=== PATIENT | female | born 1965 | race Caucasian/White ===

== ENCOUNTER 2020-03-28 12:27 | Outpatient (CLI) | payer OTHER, BC, SELFPAY ==
--- NOTE | ~2020-03-28 | MM_ITS ---
EXAMINATION: MM screening sabine BI w pepe HISTORY: Screening mammogram, family history of breast cancer in her mother. TECHNIQUE: Craniocaudal and mediolateral oblique 3-D tomosynthesis images were obtained and synthetic 2-D images were generated. CAD analysis was submitted and interpreted. COMPARISON: 03/27/2019, 03/21/2018, 03/18/2017 BREAST PARENCHYMAL COMPOSITION: The breasts are heterogeneously dense, which may obscure small masses . FINDINGS: There is no evidence of suspicious mass, calcification, or architectural distortion to sugg est malignancy in either breast. There has been no suspicious interval change. IMPRESSION: 1. No mammographic evidence of malignancy. 2. Recommend routine screening mammography in one year. BI-RADS Category 1: Negative Reviewed, dictated and finalized at location A.
== END 2020-03-28 12:28 | disposition home or self-care (01) ==
PROVIDERS: PCP Internal Medicine; Visit Provider Student in an Organized Health Care Education/Training Program
DX: Z12.31 Encounter for screening mammogram for malignant neoplasm of breast (principal)
CPT/HCPCS: 77063; 77067

== ENCOUNTER 2020-04-02 11:06 | Outpatient (CLI) | payer OTHER, BC, SELFPAY ==
--- NOTE | ~2020-04-02 | XR_ITS ---
XR hand RT min 3V DATE: 04/02/2020 11:22 INDICATION: Bilateral hand arthritis TECHNIQUE: 3 views COMPARISON: None FINDINGS: There is joint space narrowing and spurring at some of the interphalangeal joints, most pro nounced at the second distal interphalangeal joint. No fracture or dislocation, periosteal reaction or bone destruction. 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 IMPRESSION: Osteoarthritis involving primarily the distal interphalangeal joint s
--- NOTE | ~2020-04-02 | XR_ITS ---
XR hand LT min 3V DATE: 04/02/2020 11:22 INDICATION: Bilateral arthritis of the hands TECHNIQUE: 3 views COMPARISON: None FINDINGS: There is narrowing at multiple interphalangeal joints, with mild spurring at some, consiste nt with osteoarthritis. No fracture or dislocation, periosteal reaction or bone destruction, erosive change or chondrocalcino sis. IMPRESSION: Mild osteoarthritis involving the interphalangeal joints Reviewed, dictated and finalized at location A.
== END 2020-04-02 11:07 | disposition home or self-care (01) ==
PROVIDERS: PCP Internal Medicine; Visit Provider Internal Medicine
DX: M19.042 Primary osteoarthritis, left hand (principal); M19.041 Primary osteoarthritis, right hand
CPT/HCPCS: 73130

== ENCOUNTER 2021-04-01 12:25 | Outpatient (CLI) | payer OTHER, BC, SELFPAY ==
--- NOTE | ~2021-04-01 | MM_ITS ---
EXAMINATION: MM screening sabine BI w pepe HISTORY: Screening mammogram, family history of breast cancer in her mother. TECHNIQUE: Craniocaudal and mediolateral oblique 3-D tomosynthesis images were obtained and synthetic 2-D images were generated. CAD analysis was submitted and interpreted. COMPARISON: 03/28/2020 BREAST PARENCHYMAL COMPOSITION: The breasts are heterogeneously dense, which may obscure small masses . FINDINGS: There is no evidence of suspicious mass, calcification, or architectural distortion to sugg est malignancy in either breast. There has been no suspicious interval change. IMPRESSION: 1. No mammographic evidence of malignancy. 2. Recommend routine screening mammography in one year. BI-RADS Category 1: Negative Reviewed, dictated and finalized at location A.
== END 2021-04-01 12:26 | disposition home or self-care (01) ==
LOC: CHSIMG 12:28
PROVIDERS: PCP Internal Medicine; Visit Provider Obstetrics & Gynecology
DX: Z12.31 Encounter for screening mammogram for malignant neoplasm of breast (principal)
CPT/HCPCS: 77063; 77067

== ENCOUNTER 2022-04-02 07:51 | Outpatient (CLI) | payer OTHER, BC, SELFPAY ==
--- NOTE | ~2022-04-02 | MM_ITS ---
EXAMINATION: MM screening sabine BI w pepe HISTORY: Screening mammogram, family history of breast cancer in her mother. TECHNIQUE: Craniocaudal and mediolateral oblique 3-D tomosynthesis images were obtained and synthetic 2-D images were generated. CAD analysis was submitted and interpreted. COMPARISON: 04/01/2021, 03/28/2020 BREAST PARENCHYMAL COMPOSITION: The breasts are heterogeneously dense, which may obscure small masses . FINDINGS: There is no suspicious mass, calcification, or architectural distortion to suggest malignan cy in either breast. There has been no suspicious interval change. IMPRESSION: 1. No mammographic evidence of malignancy. 2. Recommend routine screening mammography in one year. BI-RADS Category 1: Negative Reviewed, dictated and finalized at location A.
== END 2022-04-02 07:52 | disposition home or self-care (01) ==
LOC: CHSIMG 07:54
PROVIDERS: PCP Internal Medicine; Visit Provider Obstetrics & Gynecology
DX: Z12.31 Encounter for screening mammogram for malignant neoplasm of breast (principal)
CPT/HCPCS: 77063; 77067

== ENCOUNTER 2022-08-12 01:15 | Day surgery (SDC) | payer OTHER, BC, SELFPAY ==
[2022-07-30 15:25] VITALS: BMI 20.9
--- NOTE | 2022-08-11 15:24 | PM.HPGS ---
History of Present Illness History of Present Illness Consent: Risks, benefits, and alternatives have been discussed and questions answered. Patient agrees to proceed with procedure. Chief complaint: Burnett syndrome Narrative: Toya Hoffman is a 57 year old female Referred for colon cancer screening. She carries a diagnosis of Burnett syndrome. She had tubular adenoma removed with hot biopsy forceps from the ascending colon 4 years ago. Review of Systems Review of Systems: All systems reviewed & are unremarkable except as noted in HPI and below PMFSH Social History Social History Smoking status: Never smoker Alcohol intake: never Substance use: never Substance use type: does not use Living arrangements: with family Spiritual care concerns: No Meds Home Medications and Allergies Home Medications Medication Instructions Recorded Confirmed Type calcium carbonate 600 mg-vitamin 1 tablet PO DAILY 07/30/22 07/30/22 History D3 5 mcg (200 unit) tablet multivit with minerals-iron 18 1 tablet PO DAILY 07/30/22 07/30/22 History mg-folic ac 400 mcg-vit K 25 mcg tablet (Adults Multivitamin) Allergies Allergy/AdvReac Type Severity Reaction Status Date / Time No Known Allergies Allergy Unverified 08/12/22 10:07 Exam Const: General: alert Orientation/consciousness: patient oriented x3 Resp: Auscultation: clear to auscultation bilaterally Cardio: Rhythm: regular rhythm GI: GI Palp: Yes Soft to palpation and No Tenderness to palpation present (GI) Neuro: General: patient oriented x3 Assessment and Plan Assessment and plan (1) Colon cancer screening: Code(s): Z12.11 - Encounter for screening for malignant neoplasm of colon Status: Acute Assessment and Plan: Colonoscopy with possible biopsy or polypectomy or cautery or injection of substances.
[2022-08-12 10:07] VITALS: BP 110/67; PULSE 109; RESP 18; TEMP 36.3; O2SAT 98
[2022-08-12] MEDS: LACTATED RINGERS 1,000 ML 150 ML IV CONT (10:17)
--- NOTE | 2022-08-12 11:44 | WPDANESEPPF ---
Anes - Initial Pre Proc Eval Procedure: Operation Date: 08/12/22 12:30 Proposed Procedures p Colonoscopy - Isak Zuniga MD Date/Time: 08/12/22 11:44 Surgeon: Isak Zuniga MD Pre Op Diagnosis: Burnett syndrome Patient Data Age: 57 Gender: F Height: 1.68 m Weight: 59.2 kg Last Vital Signs Temp 36.3 C L 08/12/22 10:07 Pulse 109 H 08/12/22 10:07 Resp 18 08/12/22 10:07 BP 110/67 08/12/22 10:07 Pulse Ox 98 08/12/22 10:07 O2 Del Method Room Air 08/12/22 10:07 Allergies Allergy/AdvReac Type Severity Reaction Status Date / Time No Known Allergies Allergy Unverified 08/12/22 10:07 Home Medications Medication Instructions Recorded Confirmed Type calcium carbonate 600 mg-vitamin 1 tablet PO DAILY 07/30/22 07/30/22 History D3 5 mcg (200 unit) tablet multivit with minerals-iron 18 1 tablet PO DAILY 07/30/22 07/30/22 History mg-folic ac 400 mcg-vit K 25 mcg tablet (Adults Multivitamin) Patient hx anesthesia problems: none Family hx anesthesia problems: none Results Review: All pre-operative results and documents have been reviewed as part of the pre-operative evaluation. [facility]LY [facility] Social History Social History Smoking status: Never smoker Alcohol intake: never Substance use: never Substance use type: does not use Living arrangements: with family Spiritual care concerns: No Anes - Eval Final PreProcedure Day of Procedure 08/12/22 11:44 Patient weight: normal Lungs: clear to auscultation Airway: Mallampati scale class II Neurological: alert and oriented Last oral intake: >/= 8 hours ASA classification: II Emergent: no Anesthetic plan: proceed Anesthesia type and monitoring: general GIVS Results Review: All pre-operative results and documents have been reviewed as part of the pre-operative evaluation. Informed Consent: The patient's anesthetic plan and its attendant risks and benefits were discussed with the patient/family/POA. Questions were solicited and answers provided to the satisfaction of the patient/family/POA.
--- NOTE | 2022-08-12 11:49 | WPDANESEPPF ---
Anes - Initial Pre Proc Eval Procedure: Operation Date: 08/12/22 12:30 Proposed Procedures p Colonoscopy - Isak Zuniga MD Date/Time: 08/12/22 11:49 Surgeon: Isak Zuniga MD Pre Op Diagnosis: Burnett syndrome Patient Data Age: 57 Gender: F Height: 1.68 m Weight: 59.2 kg Last Vital Signs Temp 36.3 C L 08/12/22 10:07 Pulse 109 H 08/12/22 10:07 Resp 18 08/12/22 10:07 BP 110/67 08/12/22 10:07 Pulse Ox 98 08/12/22 10:07 O2 Del Method Room Air 08/12/22 10:07 Allergies Allergy/AdvReac Type Severity Reaction Status Date / Time No Known Allergies Allergy Unverified 08/12/22 10:07 Home Medications Medication Instructions Recorded Confirmed Type calcium carbonate 600 mg-vitamin 1 tablet PO DAILY 07/30/22 07/30/22 History D3 5 mcg (200 unit) tablet multivit with minerals-iron 18 1 tablet PO DAILY 07/30/22 07/30/22 History mg-folic ac 400 mcg-vit K 25 mcg tablet (Adults Multivitamin) Patient hx anesthesia problems: none Family hx anesthesia problems: none Results Review: All pre-operative results and documents have been reviewed as part of the pre-operative evaluation. [facility]LY [facility] Social History Social History Smoking status: Never smoker Alcohol intake: never Substance use: never Substance use type: does not use Living arrangements: with family Spiritual care concerns: No Anes - Eval Final PreProcedure Day of Procedure 08/12/22 11:49 Patient weight: normal Lungs: clear to auscultation Airway: Mallampati scale class II Neurological: alert and oriented Last oral intake: >/= 8 hours ASA classification: II Emergent: no Anesthetic plan: proceed Anesthesia type and monitoring: general GIVS Results Review: All pre-operative results and documents have been reviewed as part of the pre-operative evaluation. Informed Consent: The patient's anesthetic plan and its attendant risks and benefits were discussed with the patient/family/POA. Questions were solicited and answers provided to the satisfaction of the patient/family/POA.
[2022-08-12 12:10] VITALS: BP 116/67; PULSE 74; RESP 16; O2SAT 98
[2022-08-12 12:20] VITALS: BP 107/69; PULSE 70; RESP 20; O2SAT 100
[2022-08-12 12:30] VITALS: BP 127/76; PULSE 68; RESP 20; O2SAT 100
== END 2022-08-12 12:37 | disposition home or self-care (01) ==
PROVIDERS: PCP Internal Medicine; Visit Provider Internal Medicine Gastroenterology
PROC: 0DJD8ZZ Inspection of Lower Intestinal Tract, Via Natural or Artificial Opening Endoscopic (ICD-10-PCS; CPT 45378; principal; 2022-08-12 12:30)
DX: Z12.11 Encounter for screening for malignant neoplasm of colon (principal); K57.30 Diverticulosis of large intestine without perforation or abscess without bleeding; Z15.09 Genetic susceptibility to other malignant neoplasm; Z86.010 Personal history of colon polyps
CPT/HCPCS: 45378; J7120

== ENCOUNTER 2023-09-21 15:51 | Outpatient (CLI) | payer OTHER, BC, SELFPAY ==
--- NOTE | ~2023-09-21 | XR_ITS ---
XR lumbar spine 2-3V DATE: 09/21/2023 16:12 INDICATION: Right lumbosacral radiculopathy for one week TECHNIQUE: AP, lateral, coned lateral lumbosacral views COMPARISON: None FINDINGS: Normal alignment of the lumbar vertebrae. There is minimal degenerative spurring. Lumbar an d lumbosacral interspaces are well preserved. No fracture or bone destruction. The lumbar and include d lower thoracic pedicles are intact. No spondylolisthesis. The sacroiliac joints are intact. Approximately location overlying the right upper quadrant of the abdomen; cannot exclude calcified ga llstone versus calcified pulmonary granuloma, right lung base. IMPRESSION: Minimal degenerative change of the lumbar spine Cannot exclude calcified gallstone versus calcified pulmonary granuloma, right lung base Reviewed, dictated and finalized at location L. FERRIER
== END 2023-09-21 15:52 | disposition home or self-care (01) ==
PROVIDERS: PCP Internal Medicine; Visit Provider Internal Medicine
DX: M54.17 Radiculopathy, lumbosacral region (principal)
CPT/HCPCS: 72100

== ENCOUNTER 2023-09-27 15:55 | Outpatient (RCR) | payer OTHER, BC, SELFPAY ==
--- NOTE | 2023-09-27 17:07 | PTOPEVAL1 ---
Assessment and note entered by Jordon Ruth Evaluation Information Assessment Status Evaluation Diagnosis right lumbosacral radiculopathy Onset 09/10/23 Subjective Information Pt. reports that pain began on 09/10/23. She recalls picking her grandchild up to help her on the toilet when she felt her pain. She reports several days after she got out of bed and could not walk. She reports that there is very little pain across the back and pain is noticable in the right buttock and down to the right calf. She reports having constant numbness in the toes and into the calf. She reports that pain is worsened with walking long distances and kicking her right leg straight out. She reports that she does have some weakness in the right leg. She states that sleep is not limited. She reports that she enjoys walking for exercise, but has been avoiding this due to pain. Her goal is to decrease her low back pain. Reported Pain Level Pain Score 6: Self Report Assessment PT Clinical Summary Pt. is a 58 year old female who enters the clinic with low back pain with right l.e. radiculopathy. Pt. is instructed in extension category activities on this date with reports of centralization of pain. She currently presents with pain, impaired gait, impaired right l.e. strength, impaired postural awareness and functional decline. Continued skilled PT is indicated in order to improve these areas to assist with improving pain for improved IADL performance. Plan of Care Interventions Electrical Stimulation,Hot Pack/Cold Pack,Manual Therapy,Mechanical Traction,Neuro Re-education, Therapeutic Activities,Therapeutic Exercise PT Services Indicated Yes Treatment Frequency and 2x/week x 12 visits Duration These treatments will address the objective and functional deficits as defined above. The patient will be advanced safely and appropriately in order for the patient to progress towards his/her prior level of function. Additional exercises will be introduced and as well as a comprehensive home exercise program upon discharge, if needed, ?to ensure carryover of functional gains achieved in the clinic. This treatment plan has been reviewed and agreement upon by the patient.
--- NOTE | 2023-09-27 17:10 | OPREHPOC ---
Outpatient Therapy Plan of Care This is a Multidisciplinary Plan of Care that may contain components documented by all disciplines (PT, OT, and ST.) PT Problem 1 PT Problem #1 Knowledge Deficit PT Goal 1 Goal Independent with a HEP addressing trunk mobility and postural awareness Target Visit 2 PT Problem 2 PT Problem #2 Pain PT Goal 1 Goal Pt. will reports pain levels at 2/10 at worst with prolonged standing activities. Target Visit 12 PT Problem 3 PT Problem #3 Impaired Gait PT Goal 1 Goal Pt. will ambulate with equal rigth and left stance time for duration of 5 minutes Target Visit 12 PT Problem 4 PT Problem #4 Impaired Strength PT Goal 1 Goal Pt. will present with gross right l.e. strength at 4+/5 Target Visit 12 PT Problem 5 PT Problem #5 Impaired Functional Mobil PT Goal 1 Goal Pt. will present with less than 15% limitation on the Oswestry indicating improve overall function.
--- NOTE | 2023-10-27 16:52 | OPREHPOC ---
Outpatient Therapy Plan of Care This is a Multidisciplinary Plan of Care that may contain components documented by all disciplines (PT, OT, and ST.) PT Problem 1 PT Problem #1 Knowledge Deficit PT Goal 1 Goal Independent with a HEP addressing trunk mobility and postural awareness Target Visit 2 Progress Met PT Problem 2 PT Problem #2 Pain PT Goal 1 Goal Pt. will reports pain levels at 2/10 at worst with prolonged standing activities. Target Visit 16 Progress Partially Met PT Problem 3 PT Problem #3 Impaired Gait PT Goal 1 Goal Pt. will ambulate with equal rigth and left stance time during 6 minute walk test Target Visit 16 Progress Partially Met Comment modified PT Problem 4 PT Problem #4 Impaired Strength PT Goal 1 Goal Pt. will present with gross right l.e. strength at 5/5 patient will perform 15 single leg heel raises bilaterally Target Visit 16 Progress Partially Met PT Problem 5 PT Problem #5 Impaired Functional Mobil PT Goal 1 Goal Pt. will present with less than 15% limitation on the Oswestry indicating improve overall function. Target Visit 16
--- NOTE | 2023-10-27 16:52 | PTOPPROG ---
Assessment and note entered by JT File, PT Evaluation Information Assessment Status Progress Diagnosis right lumbosacral radiculopathy Onset 09/10/23 Subjective Information patient reports she is much better overall. she reports she still has a little bit of numbness in the R foot, pain in the R calf, and symptoms in the R buttock. she reports coughing seems to increases her symptoms still, but overall she reports she is doing good. Assessment PT Clinical Summary mrs. stevenson presents to skilled PT services for her 10th skilled therapy visit this date. she has made great progress thus far in skilled PT. her R LE strength is improved and her pain is decreased. she continues to have symptoms into the full R LE , but her symptoms are less than initial evaluation. she also continues to have not yet achieved all goals for skilled PT. she continues to display R LE weakness, core weakness, paresthesia's, and decreased functional activity endurance. she would benefit from continued skilled PT to address her remaining/modified/new goals and return to her prior functional activity performance to improve her quality of life. Plan of Care Interventions Electrical Stimulation,Hot Pack/Cold Pack,Manual Therapy,Mechanical Traction,Neuro Re-education, Therapeutic Activities,Therapeutic Exercise PT Services Indicated Yes Treatment Frequency and continue skilled PT 2x weekly for 6 more visits Duration from this progress note. These treatments will address the objective and functional deficits as defined above. The patient will be advanced safely and appropriately in order for the patient to progress towards his/her prior level of function. Additional exercises will be introduced and as well as a comprehensive home exercise program upon discharge, if needed, ?to ensure carryover of functional gains achieved in the clinic. This treatment plan has been reviewed and agreement upon by the patient.
--- NOTE | 2023-11-18 16:54 | OPREHPOC ---
Outpatient Therapy Plan of Care This is a Multidisciplinary Plan of Care that may contain components documented by all disciplines (PT, OT, and ST.) PT Problem 1 PT Problem #1 Knowledge Deficit PT Goal 1 Goal Independent with a HEP addressing trunk mobility and postural awareness Target Visit 2 Progress Met PT Problem 2 PT Problem #2 Pain PT Goal 1 Goal Pt. will reports pain levels at 2/10 at worst with prolonged standing activities. Target Visit 16 Progress Met PT Problem 3 PT Problem #3 Impaired Gait PT Goal 1 Goal Pt. will ambulate with equal rigth and left stance time during 6 minute walk test Target Visit 16 Progress Met Comment . PT Problem 4 PT Problem #4 Impaired Strength PT Goal 1 Goal Pt. will present with gross right l.e. strength at 5/5 patient will perform 15 single leg heel raises bilaterally Target Visit 16 Progress Met PT Problem 5 PT Problem #5 Impaired Functional Mobil PT Goal 1 Goal Pt. will present with less than 15% limitation on the Oswestry indicating improve overall function. Target Visit 16 Progress Met
--- NOTE | 2023-11-18 16:55 | PTOPDC ---
Assessment and note entered by Valerie Marcos DPT Evaluation Information Assessment Status Re-evaluation Diagnosis right lumbosacral radiculopathy Onset 09/10/23 Subjective Information Patient reports that numbness in the R foot has resolved. she reports she does feel like she has a cramp in her calf at time. she reports she does have only occasional shooting pain down the R LE. any time she coughs she can feel an increase in pain. Reported Pain Level Pain Score 1: Self Report Assessment PT Clinical Summary Mrs. Hoffman was seen for 16 visits of skilled PT with all goals met. She reports no numbness in the R LE with 5/5 strength of the R LE. She demonstrates equal stride length B and was able to ambulate 1600' during the 6 min walk test. She is independent with HEP and is appropriate for DC at this time. Plan of Care PT Services Indicated No
== END 2023-11-18 17:08 | disposition home or self-care (01) ==
LOC: CHSPT 15:55
PROVIDERS: PCP Internal Medicine; Visit Provider Internal Medicine
DX: M54.16 Radiculopathy, lumbar region (principal)
CPT/HCPCS: 97012; 97014; 97110; 97140; 97150; 97161; 97530; G0283

== ENCOUNTER 2023-11-25 07:19 | Outpatient (CLI) | payer OTHER, BC, SELFPAY ==
--- NOTE | ~2023-11-25 | XR_ITS ---
Clinical Indication: Tachycardia PA and lateral views of the chest: Comparison: None Findings: The lungs are clear, without evidence of focal consolidation or pleural effusion. Cardiome diastinal silhouette is within normal limits. Bones and soft tissues are unremarkable. Impression: Normal chest. Reviewed, dictated and finalized at location . EY MAN Impression: Normal chest.
--- NOTE | ~2023-11-25 | US_ITS ---
Limited Abdominal Sonogram: Real-time sonographic imaging of the right upper quadrant was performed. Clinical History: Gallstones Findings: The liver appears normal with no evidence of mass lesion or bile duct dilatation. Main por joanna vein demonstrates normal direction of flow. The gallbladder is well distended, and appears normal with no evidence of gallstone or wall thickening. The common bile duct measures 5 mm. The visualize d pancreas, aorta, and IVC are unremarkable. Impression: No significant abnormality seen. Reviewed, dictated and finalized at location . EX CLERK Impression: No significant abnormality seen.
== END 2023-11-25 07:20 | disposition home or self-care (01) ==
LOC: CHSIMG 07:22
PROVIDERS: PCP Internal Medicine; Visit Provider Internal Medicine
DX: R00.0 Tachycardia, unspecified (principal); M54.30 Sciatica, unspecified side; J84.10 Pulmonary fibrosis, unspecified; K80.20 Calculus of gallbladder without cholecystitis without obstruction
CPT/HCPCS: 71046; 76705